=== PATIENT | female | born 1935 | race Caucasian/White ===

== ENCOUNTER 2017-03-25 15:25 | Emergency (ER) | payer MEDICARE ==
--- NOTE | 2017-03-25 15:39 | Emergency Department Report ---
Stated Complaint: SHUKRI Time Seen by Provider: 03/25/17 15:28 - HPI History of Present Illness: PT c/o breathing heavy for over two weeks. PT states she has a kidney problem but has not been on HD since the last time she was here. PT reports ble edema. PT states she last took her water pills two days ago. PT states she did not take her water pills today because she had a doctors appointment. PT states she was seen by [facility] and she was sent to the ED - [facility] Review of Systems: + sob + edema - Exam Physical Exam: pt is pale no acute resp distress + ble edema (R>L) MSE screening note: Focused history and physical exam performed. Due to findings the following was ordered: EKG, XR, labs ED Disposition for MSE Condition: Stable
[2017-03-25 15:42] VITALS: BP 160/96
[2017-03-25 16:06] LABS: Basophils % (Auto) 1.4 % (0.0-1.8); Eosinophils % (Auto) 3.1 % (0.0-4.3); Hematocrit 34.4 % (30.3-42.9); Hemoglobin 11.5 gm/dl (10.1-14.3); Mean Corpuscular HGB Conc 33 % (30-34); Mean Corpuscular Hemoglobin 32 pg (28-32); Mean Corpuscular Volume 96 fl (79-97); Platelet Count 280 K/mm3 (140-440); Red Cell Distribution Width 16.5 % (13.2-15.2); White Blood Count 5.6 K/mm3 (4.5-11.0)
[2017-03-25 16:22] LABS: INR 1.14 (0.87-1.13)
[2017-03-25 16:23] LABS: Partial Thromboplastin Time 33.2 Sec. (24.2-36.6)
[2017-03-25 16:41] LABS: Creatine Kinase MB 2.9 ng/mL (0.0-4.0)
[2017-03-25 16:42] LABS: Albumin 3.3 g/dL (3.9-5); Albumin/Globulin Ratio 0.9 %; BUN/Creatinine Ratio 16.84; Bilirubin,Total 0.7 mg/dL (0.1-1.2); Calcium 8.7 mg/dL (8.4-10.2); Total Protein 7.1 g/dL (6.3-8.2)
[2017-03-25 16:43] LABS: Chloride 103.9 mmol/L (98-107); Potassium 4.4 mmol/L (3.6-5.0)
--- NOTE | 2017-03-26 07:20 | XRay Report ---
CHEST 2 VIEWS INDICATION: Dyspnea. COMPARISON: 10/22/2016 FINDINGS: PA and lateral chest radiographs demonstrate stable cardiomediastinal silhouette/borderline cardiomegaly, aortic knob calcifications and mild to moderately elevated right hemidiaphragm with presumed subjacent hepatic flexure. Improved right basilar atelectasis. Bilateral horizontal midlung probable scarring. No pleural effusions or CHF. Demineralized bones with multilevel spinal spondylosis, including degenerative spurring and mild scoliosis. Moderate bilateral shoulder degenerative changes involving the humeral heads as well. CONCLUSION: Improved right basilar atelectasis with various other stable findings, as detailed above. Thank you for the opportunity to participate in this patient's care.
--- NOTE | 2017-03-27 01:47 | ED Elopement Review ---
ED Pt Elopement review - Results review Lab results: Laboratory Tests 03/25/17 03/25/17 03/25/17 15:45 15:45 15:45 WBC 5.6 RBC 3.60 L Hgb 11.5 Hct 34.4 MCV 96 MCH 32 MCHC 33 RDW 16.5 H Plt Count 280 Lymph % (Auto) 13.5 Gates % (Auto) 6.3 Eos % (Auto) 3.1 Baso % (Auto) 1.4 Lymph # 0.8 L Gates # 0.4 Eos # 0.2 Baso # 0.1 Seg Neutrophils % 75.7 H Seg Neutrophils # 4.2 PT 14.5 INR 1.14 H APTT 33.2 Sodium 141 Potassium 4.4 Chloride 103.9 Carbon Dioxide 18 L Anion Gap 24 BUN 32 H Creatinine 1.9 H Estimated GFR 25 BUN/Creatinine Ratio 16.84 Glucose 122 H Calcium 8.7 Total Bilirubin 0.70 AST 18 ALT 10 Alkaline Phosphatase 102 Total Creatine Kinase 106 CK-MB (CK-2) 2.9 CK-MB (CK-2) Rel Index 2.7 Troponin T 0.033 H NT-Pro-B Natriuret Pep 63391 H Total Protein 7.1 Albumin 3.3 L Albumin/Globulin Ratio 0.9 Triglycerides 82 Cholesterol 151 LDL Cholesterol Direct 82 HDL Cholesterol 53 Cholesterol/HDL Ratio 2.84 03/25/17 19:10 WBC RBC Hgb Hct MCV MCH MCHC RDW Plt Count Lymph % (Auto) Gates % (Auto) Eos % (Auto) Baso % (Auto) Lymph # Gates # Eos # Baso # Seg Neutrophils % Seg Neutrophils # PT INR APTT Sodium Potassium Chloride Carbon Dioxide Anion Gap BUN Creatinine Estimated GFR BUN/Creatinine Ratio Glucose Calcium Total Bilirubin AST ALT Alkaline Phosphatase Total Creatine Kinase CK-MB (CK-2) CK-MB (CK-2) Rel Index Troponin T 0.031 H NT-Pro-B Natriuret Pep Total Protein Albumin Albumin/Globulin Ratio Triglycerides Cholesterol LDL Cholesterol Direct HDL Cholesterol Cholesterol/HDL Ratio - Call Back decision Pt Call Back Decision: Call pt to return to ED [facility] (Please call patient back)
== END 2017-03-25 21:50 | disposition left against medical advice (07) ==
LOC: ED 15:25
DX: R06.00 Dyspnea, unspecified (principal); Z53.21 Procedure and treatment not carried out due to patient leaving prior to being seen by health care provider
CPT/HCPCS: 36415; 71020; 80053; 80061; 82550; 82553; 83880; 84484; 85025; 85610; 85730; 93005; 93010